=== PATIENT | female | born 1950 | race Caucasian/White ===

== ENCOUNTER → 2019-11-08 16:07 | Outpatient (BNVA) | payer MEDICARE, OTHER, SELFPAY | PROVIDERS: Family Provider Internal Medicine; PCP Internal Medicine; Visit Provider Internal Medicine | DX: K52.9 Noninfective gastroenteritis and colitis, unspecified (principal); M79.7 Fibromyalgia; E03.9 Hypothyroidism, unspecified; R10.30 Lower abdominal pain, unspecified; R63.4 Abnormal weight loss | CPT/HCPCS: 80053; 84443; 85025 ==

== ENCOUNTER 2019-11-28 11:25 | Outpatient (CLI) | payer MEDICARE, OTHER, SELFPAY ==
[2019-11-28] MEDS: iohexol 300 mg/mL 50 mL Btl PO (13:00)
--- NOTE | 2019-11-28 13:00 | CT_ITS ---
WS: [id number] CT ABDOMEN AND PELVIS WITH CONTRAST HISTORY: Abdominal pain and diarrhea. TECHNIQUE: Imaging performed of the abdomen and pelvis with IV contrast. Single phase imaging of the abdomen. Coronal and sagittal reformats are submitted. All CT scans at [facility] use at least one of these dose optimization techniques: automated exposure control; mA and/or kV adjustment per patient size (includes targeted exams where dose is matched to clinical indication); or iterativ e reconstruction. IV CONTRAST: Omnipaque 300; 75 mL IV. Oral contrast: Yes. DLP: 1065.52 mGycm COMPARISON: None available. Lower thorax: Noncalcified nodules at the LEFT lung base. Subpleural-based nodules measure up to 4 mm at the LEFT lung base. 1 No hiatal hernia. Liver/biliary system: Normal size liver. Very slight bile duct dilatation may be physiologic. Gallbladder: Status post cholecystectomy. Pancreas: Normal. Spleen: Spleen is normal size and contains a granuloma. Adrenal glands: Normal. Right kidney: Normal. Left kidney: No solid mass. 2 small to characterize hypodensities in the cortex. Aorta: Mild atherosclerosis with no aneurysm. Lymphadenopathy: None. Free fluid: None. GI tract: Normal appendix. Mild fecal retention in the RIGHT colon and transverse colon. There are a few scattered diverticula in the sigmoid region with mild wall thickening. No acute inflammation. Abdominal wall: Unremarkable abdominal wall. No hernia. Pelvis: No free fluid or adenopathy. LEFT adnexal cyst measures 3.2 x 2.8 cm. Nondistended urinary bl adder. There is a very tiny amount of air in the urinary bladder which may be due to recent instrumen tation or infection. Bones: Degenerative changes in the lumbar spine. No osteoblastic or osteolytic bone disease. CT/CT abdomen pelvis w con* [id number] IMPRESSION: 1. Prior cholecystectomy. 2. Mild sigmoid diverticulosis with sigmoid wall thickening. No acute divertic ulitis. 3. LEFT ovarian cyst measuring 3.2 x 2.8 cm. 4. Tiny amount of air in the urinary bladder. May be due to recent instrumenta tion or gas producing organism. Less likely fistula formation with GI tract. 5. Subcentimeter, subpleural nodules at the LEFT lung base. Recommend follow-u p chest CT in 6 months.
[2019-11-28] MEDS: iohexol 300 mg/mL 100 mL Btl IV (13:01)
== END 2019-11-28 11:26 | disposition home or self-care (01) ==
LOC: RADWPI 11:29
PROVIDERS: Family Provider Internal Medicine; PCP Internal Medicine; Visit Provider Internal Medicine
DX: R63.4 Abnormal weight loss (principal); R10.30 Lower abdominal pain, unspecified; K57.30 Diverticulosis of large intestine without perforation or abscess without bleeding; N83.202 Unspecified ovarian cyst, left side; R91.8 Other nonspecific abnormal finding of lung field
CPT/HCPCS: 74177; Q9967

== ENCOUNTER 2019-12-23 13:56 | Outpatient (CLI) | payer MEDICARE, OTHER, SELFPAY ==
--- NOTE | 2019-12-23 14:22 | XR_ITS ---
WS: [id number] PROCEDURE: XR chest 2V* [id number] CLINICAL INFORMATION: LOWER RESPIRATORY INFECTION COMPARISON: None. FINDINGS: Heart: Normal cardiac silhouette. Lungs: Lungs are clear. No consolidation or pleural fluid. Moderate chronic emphysematous changes Bones: Normal visualized bony structures. Cholecystectomy clips. XR/XR chest 2V* [id number] IMPRESSION: No acute chest findings
== END 2019-12-23 13:57 | disposition home or self-care (01) ==
LOC: RADWPI 14:00
PROVIDERS: Family Provider Internal Medicine; PCP Internal Medicine
DX: J22 Unspecified acute lower respiratory infection (principal)
CPT/HCPCS: 71046

== ENCOUNTER 2020-03-20 11:29 | Outpatient (CLI) | payer MEDICARE, OTHER, SELFPAY ==
--- NOTE | 2020-03-20 11:43 | XR_ITS ---
WS: [id number] ABDOMEN 1 VIEW(S) HISTORY: GENERALIZED ABDOMINAL PAIN COMPARISON: None available. Normal bowel gas pattern. No suspicious calcifications or masses. Mild spondylitic changes. Narrowing of the RIGHT SI joint. No fusion was noted on CT of 11/28/2019. Cholecystectomy. XR/XR abdomen 1V* [id number] IMPRESSION: Prior cholecystectomy. No obstruction.
== END 2020-03-20 11:30 | disposition home or self-care (01) ==
LOC: RADWPI 11:34
PROVIDERS: Family Provider Nurse Practitioner Family; PCP Nurse Practitioner Family; Visit Provider Nurse Practitioner Family
DX: R10.84 Generalized abdominal pain (principal); Z90.49 Acquired absence of other specified parts of digestive tract
CPT/HCPCS: 74018

== ENCOUNTER 2020-04-10 14:40 | Outpatient (CLI) | payer MEDICARE, OTHER, SELFPAY ==
--- NOTE | 2020-04-10 14:46 | US_ITS ---
WS: [id number] RENAL ULTRASOUND REASON FOR EXAM: GENERALIZED ABDOMINAL PAIN TECHNIQUE: Grayscale and Doppler ultrasound examination of the kidneys. FINDINGS: Right kidney: Right kidney measures 10.1 cm x 5.1 cm x 4.3 cm. No mass, hydronephrosis, or calculus. Renal cortical thickness 1.2 cm. Left kidney: Left kidney measures 9.7 cm x 4.5 cm x 5.0 cm. No mass, hydronephrosis, or calculus. Anshul al cortical thickness 1.6 cm. Very small amount of fluid in the urinary bladder no abnormality seen. US/US renal BI* [id number] IMPRESSION: No significant abnormality.
== END 2020-04-10 14:41 | disposition home or self-care (01) ==
LOC: US 14:43
PROVIDERS: PCP Nurse Practitioner Family; Visit Provider Nurse Practitioner Family
DX: R10.84 Generalized abdominal pain (principal)
CPT/HCPCS: 76770

== ENCOUNTER → 2021-03-11 13:17 | Outpatient (BNVA) | payer MEDICARE, OTHER, SELFPAY | PROVIDERS: PCP Nurse Practitioner Family; Visit Provider Specialist | DX: M17.12 Unilateral primary osteoarthritis, left knee (principal); M25.562 Pain in left knee | CPT/HCPCS: 73560; 73565 ==

== ENCOUNTER 2021-06-18 09:11 | Outpatient (CLI) | payer MEDICARE, OTHER, SELFPAY ==
--- NOTE | 2021-06-18 09:19 | MR_ITS ---
WS: [id number] MRI LEFT KNEE NONCONTRAST TECHNIQUE: Axial PD, coronal PD fat sat, coronal PD, sagittal PD, and sagittal PD fat-sat images obta ined. CLINICAL INFORMATION: S83.209A - Unspecified tear of unspecified meniscus, curr... COMPARISON: MRI 2018 FINDINGS: Distal quadriceps and patella tendons are intact. Tendinosis involving the proximal patella tendon. H ypertrophic patella. Small joint effusion. Normal ACL and PCL. Advanced joint space narrowing medial joint compartment with subchondral edema progressed compared to previous. Prior medial meniscectomy. Associated subchondral cystic change. Lateral meniscus is better preserved. Normal medial and lateral collateral ligaments. Trace fluid aramis p to the MCL. Mild chondromalacia patella. Normal medial and lateral patellar retinaculum. Normal pop liteal fossa. MR/MR knee LT wo con* [id number] IMPRESSION: 1. Normal anterior and posterior cruciate ligaments. 2. Prior medial meniscectomy with near complete loss of the medial joint space with [id number] articulation and advanced chondromalacia. This is progressed compared to previous. 3. Associated subchondral cystic change and edema in the medial femoral condyl e and tibial plateau. 4. Lateral meniscus is better preserved. 5. Mild chondromalacia patella with hypertrophic patella. Tendinosis proximal patellar tendon. 6. Small joint effusion. 7. No other acute findings. Outbridge grading: grade III: partial-thickness cartilage loss with focal ulcer ation
== END 2021-06-18 09:12 | disposition home or self-care (01) ==
PROVIDERS: PCP Nurse Practitioner Family; Visit Provider Specialist
DX: S83.207A Unspecified tear of unspecified meniscus, current injury, left knee, initial encounter (principal); X58.XXXA Exposure to other specified factors, initial encounter; M25.462 Effusion, left knee; M22.42 Chondromalacia patellae, left knee
CPT/HCPCS: 73721

== ENCOUNTER → 2021-07-18 13:00 | Outpatient (BNVA) | payer MEDICARE, OTHER, SELFPAY | PROVIDERS: PCP Internal Medicine; Visit Provider Internal Medicine | DX: R07.9 Chest pain, unspecified (principal); R30.0 Dysuria; M79.7 Fibromyalgia | CPT/HCPCS: 80053; 80061; 81000; 84443; 85025 ==

== ENCOUNTER 2021-07-30 14:23 | Outpatient (RCR) | payer MEDICARE, OTHER, SELFPAY | END 2021-08-29 23:59 | disposition home or self-care (01) | LOC: SPT 14:23 | PROVIDERS: PCP Internal Medicine; Visit Provider Specialist | DX: M17.12 Unilateral primary osteoarthritis, left knee (principal) | CPT/HCPCS: 97110; 97162 ==

== ENCOUNTER → 2022-03-13 09:50 | Outpatient (BNVA) | payer MEDICARE, OTHER, SELFPAY | PROVIDERS: PCP Internal Medicine; Visit Provider Specialist | DX: M17.12 Unilateral primary osteoarthritis, left knee (principal) | CPT/HCPCS: 20610; J7327 ==

== ENCOUNTER → 2022-04-30 10:22 | Outpatient (BNVA) | payer MEDICARE, OTHER, SELFPAY | PROVIDERS: PCP Internal Medicine; Visit Provider Specialist | DX: M17.12 Unilateral primary osteoarthritis, left knee (principal) | CPT/HCPCS: 73560; 73565; 99214 ==

== ENCOUNTER 2022-05-05 13:57 | Outpatient (CLI) | payer MEDICARE, OTHER, SELFPAY ==
--- NOTE | 2022-05-05 18:00 | CT_ITS ---
WS: [id number] CT LEFT KNEE, NONCONTRAST FAUSTINA TECHNIQUE: Noncontrast CT of the LEFT knee to include the LEFT hip and ankle. CLINICAL INFORMATION: pre op DLP: 855.[address] scans at [facility] use at least one of these dose optimization techniques: automated e xposure control; mA and/or kV adjustment per patient size (includes targeted exams where dose is matc hed to clinical indication); or iterative reconstruction. FINDINGS: Moderate to advanced tricompartmental arthritis LEFT knee worse in the medial joint compartment. Hype rtrophic patella. Small suprapatellar effusion. Mild soft tissue edema about the knee. Vascular calcification. Sigmoid diverticulosis. CT/CT knee LT FAUSTINA IMPRESSION: Images obtained for preoperative purposes.
== END 2022-05-05 13:58 | disposition home or self-care (01) ==
LOC: RAD 14:00
PROVIDERS: PCP Internal Medicine; Visit Provider Specialist
DX: M17.12 Unilateral primary osteoarthritis, left knee (principal)
CPT/HCPCS: 73700

== ENCOUNTER 2022-05-13 14:34 | Observation (INO) | payer MEDICARE, OTHER, SELFPAY ==
[2022-05-09 10:03] VITALS: BMI 23.0
--- NOTE | 2022-05-09 10:15 | ECG_ITS ---
[facility] Test Date: 2022-05-09 Pat Name: Cristy Blevins Department: Room: Gender: Female Studio Receptionist: : 1950 Requested By: Attila Kennedy Order Number: [id number] Chase MD: Missy Lund M.D. Measurements Intervals Circle Rate: 64 P: 45 NE: 154 QRS: 31 QRSD: 85 T: 40 QT: 405 QTc: 419 Interpretive Statements SINUS RHYTHM No previous ECG available for comparison Electronically Signed On 05-09-2022 13:13:30 SUPERVISOR BLOOD by Missy Lund M.D. [id number]
[2022-05-09 10:36] LABS: Add Urine Microscopic? NO; Charge for UA Resulting for Rev
[2022-05-09 10:37] LABS: Basophils % 0.4 %; Eosinophils # 0.1 10^3/uL (0.0-0.8); Eosinophils % 1.1 %; Hematocrit 36.7 % (37.0-47.0); Hemoglobin 12.2 g/dL (11.5-15.3); Lymphocytes # 1.4 10^3/uL (0.8-4.8); Lymphocytes % 26.2 %; Mean Corpuscular HGB Conc 33.2 g/dL (30.0-36.0); Mean Corpuscular Hemoglobin 30.9 pg (28.0-34.0); Mean Corpuscular Volume 92.9 fl (81-99); Mean Platelet Volume 10.4 fL (7.4-10.4); Monocytes # 0.5 10^3/uL (0.2-0.9); Monocytes % 8.8 %; Neutrophils # 3.44 10^3/uL (1.8-7.7); Neutrophils % 63.3 %; Nucleated Red Blood Cells % 0 %; Platelet Count 189 10^3/cmm (130-400); Red Blood Count 3.95 10^6/uL (4.1-5.3); Red Cell Distribution Width 11.9 % (12.1-15.1); White Blood Count 5.4 10^3/uL (4.0-10.0)
[2022-05-09 10:40] LABS: Bilirubin Urine Neg (Negative); Blood Urine Neg (Negative); Glucose Urine UA Norm (Normal); Ketones Urine Negative (Negative); Leukocyte Esterase Urine Negative (Negative); Nitrate Urine Negative (Negative); Protein Urine Neg (Negative); Specific Gravity, Urine 1.025 (1.005-1.030); Urine Appearance Clear (CLEAR); Urine Color Yellow (Yellow); Urobilinogen Urine Norm (Negative); pH Urine 5 (5-7)
[2022-05-09 10:59] LABS: Alanine Aminotransferase 16 U/L (0-33); Albumin Level 4.1 g/dL (3.5-5.2); Alkaline Phosphatase 62 U/L (35-105); Aspartate Amino Transferase 18 U/L (0-32); Blood Urea Nitrogen 16 mg/dL (8-23); Calcium 9.9 mg/dL (8.5-10.5); Carbon Dioxide 26 mmol/L (22-29); Chloride 103 mmol/L (98-107); Globulin 3.1 g/dL (1.3-4.6); Glucose 83 mg/dL (65-115); Osmolality Calculated 286 mOsm/kg (285-295); Sodium 138 mmol/L (136-145); Total Bilirubin 0.4 mg/dL (0.15-1.2); Total Protein 7.2 g/dL (6.6-8.7)
--- NOTE | 2022-05-09 11:48 | P.ANESASSM_ITS ---
Pre-Anesthetic Assessment Height/Weight: Height 1.6 m Weight 58.967 kg Operation Date: 05/13/22 10:35 Proposed Procedures p LEFT TOTAL KNEE ARTHROPLASTY WITH FAUSTINA ASSISTANCE 40074 M17.10(Left) - Seda Gibson MD Familial anesthetic complications: none Was Beta Alpesh taken within 24 hours: N/A Was Clonidine taken within 24 hours: N/A Social No alcohol and No tobacco Exam alert, oriented x 3, clear to auscultation bilaterally and regular rate & rhythm Airway Submandibular: within normal limits Cervical ROM: within normal limits Mallampati: Class II Dentition: full Musc/skel Fibromyalgia and Osteoarthritis/DJD Neuropsych Anxiety and Depression Anesthetic Plan ASA status: 2 Anesthesia: Regional (specify below) (SAB with adductor blk) Medications/Allergies Home Medications Medication Instructions Recorded Confirmed Last Taken Type ascorbic acid (vitamin C) 1,000 mg 1 gm PO ONCE 06/08/19 05/09/22 05/09/22 Hi story tablet aspirin 81 mg tablet,delayed 81 mg PO ONCE 06/08/19 05/09/22 04/30/22 History release calcium tab PO ONCE 06/08/19 04/30/22 05/09/22 History eny-rhz-C4-Eg-wbjilc-Tz-boron 250 mg-40 mg-125 unit tablet cholecalciferol (vitamin D3) 50 2,000 unit PO ONCE 06/08/19 05/09/22 05/09/22 History mcg (2,000 unit) tablet vitamin B complex (B 1 tab PO ONCE 06/08/19 05/09/22 05/02/22 History Complex-Vitamin B12 tablet) vitamin E (dl, acetate) 45 mg (100 100 unit PO ONCE 06/08/19 05/09/22 05/09/22 History unit) capsule bismuth subsalicylate 262 mg 3 tab PO TID 07/27/19 05/09/22 Unknown History chewable tablet (Pepto-Bismol) meloxicam 15 mg tablet See Rx Instructions .Route 06/12/21 05/09/22 04/30/22 Rx .COMPLEX #90 tabs fluoxetine 40 mg capsule See Rx Instructions .Route 06/24/21 05/09/22 05/09/22 Rx .COMPLEX #90 caps trazodone 50 mg tablet See Rx Instructions .Route 03/17/22 05/09/2205/08/22 Rx .COMPLEX #90 tabs Allergies Allergy/AdvReac Type Severity Reaction Status Date / Time No Known Allergies Allergy Verified 05/09/22 09:58 [facility] Anesthesia Medical History Depression Fibromyalgia History of colon polyps Osteoarthritis Seborrheic keratoses Surgical History H/O arthroscopic knee surgery left H/O colonoscopy 12/17/18. Repeat in 5 years H/O esophagogastroduodenoscopy 12/17/18 H/O rotator cuff surgery right 2009 H/O wrist surgery left 12/2016 [facility] History of hysterectomy partial History of tonsillectomy and adenoidectomy Hx laparoscopic cholecystectomy 03/30/19 Family History Other Cancer Heart disease Hypertension Stroke Denies family history of Anesthesia complication Bleeding disorder Social History Smoking and tobacco status: never smoked Alcohol intake: current Alcohol intake frequency: holidays/special occasions only Lives independently: Yes Marital status: Single Current occupational status: retired History of recent travel: No Data Anesthesia 05/09/22 10:20 05/09/22 10:20 Short CBC 05/09/22 Range/Units 10:20 WBC 5.4 (4.0-10.0) 10^3/uL Hgb 12.2 (11.5-15.3) g/dL Hct 36.7 L (37.0-47.0) % MCV 92.9 (81-99) fl Plt Count 189 (130-400) 10^3/cmm Neut % (Auto) 63.3 % Neut # (Auto) 3.44 (1.8-7.7) 10^3/uL BMP 05/09/22 10:20 Sodium 138 Potassium 4.0 Chloride 103 Carbon Dioxide 26 BUN 16 Creatinine 0.7 Glucose 83 Calcium 9.9 Liver Function 05/09/22 Range/Units 10:20 Total Bilirubin 0.4 (0.15-1.2) mg/dL AST 18 (0-32) U/L ALT 16 (0-33) U/L Alkaline Phosphatase 62 (35-105) U/L Albumin 4.1 (3.5-5.2) g/dL Urine 05/09/22 Range/Units 10:20 Urine Color Yellow (Yellow) Urine Appearance Clear (CLEAR) Urine pH 5 (5-7) Ur Specific Dowling 1.025 (1.005-1.030) Urine Protein Neg (Negative) Urine Glucose (UA) Norm (Normal) Urine Ketones Negative (Negative) Urine Nitrate Negative (Negative) Urine Bilirubin Neg (Negative) Ur Leukocyte Esterase Negative (Negative) Cardiac Studies: No Data to Display
[2022-05-13] VITALS (17 sets, daily range): BP systolic 128–160; BP diastolic 62–84; PULSE 68–98; RESP 15–21; TEMP 36.4–36.8; O2SAT 94–99; BMI 23.0
--- NOTE | 2022-05-13 09:11 | P.ANESUD_ITS ---
Pre-Anesthetic Update Pre-Anesthetic Assessment: Date of Surgery/Procedure: 05/13/22 Preop Jailene gnosis: Primary osteoarthritis left knee Proposed Procedure: Operation Date: 05/13/22 10:35 Proposed Procedures p LEFT TOTAL KNEE ARTHROPLASTY WITH FAUSTINA ASSISTANCE 54075 M17.10(Left) - Seda Gibson MD Any changes to Pre-Anesthetic Assessment?: No Last Intake: Intake Last Liquid Date 05/12/22 Last Liquid Time 23:00 Last Solid Date 05/12/22 Last Solid Time 19:30 Vitals: Temperature 97.5 F L 05/13/22 08:59 Temperature Source Temporal Artery S can 05/13/22 08:59 Pulse Rate 80 05/13/22 08:59 Respiratory Rate 18 05/13/22 08:59 Blood Pressure 157/77 05/13/22 08:59 Blood Pressure Isabel n 103 05/13/22 08:59 Pulse Oximetry 96 05/13/22 08:59 Oxygen Delivery Me thod 05/13/22 08:59 Exam: Pre-Anes Outpt Exam: alert, oriented x 3, clear to auscultation bilaterally and regular rate & rhythm Cardiac Studies: No Data to Display
[2022-05-13] MEDS: acetaminophen 1,000 MG/100 ML PIGGYBACK 400 MG IV ×2 (09:12→16:57)
[2022-05-13] MEDS: CELEcoxib 200 mg Capsule 400 MG PO (09:12)
[2022-05-13] MEDS: sodium chloride 0.9% 1,000 ML 30 ML IV (09:12)
--- NOTE | 2022-05-13 09:35 | ANES.PROC ---
Anesthesia Procedures Procedure/Date: 05/13/22 Nerve Block ^: Nerve Block 1: Main Anesthesia: general anesthesia Time Out Performed: Yes Consent: requested by attending/covering physician, from patient, risks and benefits reviewed and patient agrees to proceed Nerve block location: adductor canal (L) Anesthesia monitors applied: pulse oximetry, EKG, BP cuff and oxygen Nerve block position: supine Anesthetic Used: ropivicaine 0.5% (30 ml) and with decadron (4 mg) Ultrasound used to: recognize landmarks and visualize and ID femerol nerve Nerve Stimulator Used?: No Interscalene/Femoral BLK: 4 stimuplex 21 g needle used for position and inplane approach, visualize local anesthetic spread and no vascular puncture identified Injection: neg aspiration of heme and paresthesia +/- Patient Tolerated Procedure: well and no complications Complications: none
--- NOTE | 2022-05-13 10:11 | W.PM.OPSUD ---
Surgery/Procedure H&P Update DATE OF PROCEDURE: May 13, 2022 DATE H&P PERFORMED: 04/30/22 H&P UPDATE INFORMATION: I have reviewed H&P completed within last 30 days, I have examined patient prior to procedure, No changes to prior documentation and H&P is in [facility] EMR on date indicated PREOP DIAGNOSIS: Primary osteoarthritis left knee PLANNED PROCEDURE: Operation Date: 05/13/22 10:35 Proposed Procedures p LEFT TOTAL KNEE ARTHROPLASTY WITH FAUSTINA ASSISTANCE 24118 M17.10(Left) - Seda Gibson MD
[2022-05-13] MEDS: ceFAZolin 2,000 MG in sodium chloride 0.9% (plus) 50 ML 100 MG IV ×2 (10:34→17:59)
[2022-05-13] MEDS: tranexamic acid 1,000 mg/10mL SDV 1000 MG IV ×2 (11:28→12:33)
[2022-05-13] MEDS: ceFAZolin 1,000 mg SDV 1000 MG IRRIGATION (11:34)
[2022-05-13] MEDS: vancomycin 1,000 MG SDV 1000 MG XX (11:35)
--- NOTE | 2022-05-13 14:25 | PM.OP ---
Operative Report Date of procedure: May 13, 2022 Pre-op diagnosis: Primary osteoarthritis left knee Post-op diagnosis: Primary osteoarthritis left knee Post-op findings: Severe degenerative osteoarthritic changes with loss of cartilage on the medial femoral condyle and large osteophytes Procedure done: Lavelle assisted left total knee arthroplasty Implants: The [employer] total knee system with a size 3 triathlon beaded cruciate retaining femur left, a triathlon titanium tibial component size 3 beaded, a triathlon X3 tibial bearing CS insert size 3 X 11 mm and a beaded triathlon titanium asymmetric patella size 32 x 10 mm Specimens removed/disposition: Bone, disposed of Pathology: none sent Surgeon: Seda Gibson Eligibility Examiner: [facility] operating room technicians Anesthesia: MAC (With spinal anesthesia, ASA 2, with supplemental adductor block) Estimated blood loss (mL): 50 Tourniquet time (min): 86 (At 250 mmHg) IV fluids (mL): 800 Urine output (mL): 500 Complications: None Findings: Degenerative osteoarthritic change with cartilage loss and osteophyte formation. Condition: stable Disposition: PACU (Then to floor for postoperative rehabilitation and pain.) Brief History: Cristy Blevins is an established 71 year old female patient who is here today to proceed with left total knee arthroplasty. Patient states Monovisc injection did not help.? Patient also states that cortisone injections did not help.? She continues to have difficulty with activities of daily living, and at this point, she would just like to have her knee fixed . Risks and complications were discussed in the office. Consents were signed and questions were answered. Procedure: The patient was brought to the operating theater, and after undergoing adequate spinal anesthesia supplemented with adductor canal block and MAC, ASA 2, the left lower extremity was prepped with Dura-Prep and draped in usual fashion following placement of a tourniquet high on the leg. The leg was then draped free. Following prepping and draping, the leg was exsanguinated, and the tourniquet was elevated to 250 mmHg for a total tourniquet time of 86 minutes.? Prior to elevation of the tourniquet, but following exposure of the site of surgery, a surgical pause was performed. At the time of the surgical pause, we confirmed the site and side of surgery. Additionally, we confirmed the appropriate and timely administration of preoperative antibiotics, Ancef 2 g and Transexemic acid 1 g.? The availability of equipment was confirmed, and the patient's identity was verbalized as well.? An additional transexemic acid 1 g was given at the end of the surgical procedure as well. Following the surgical pause, an incision was made centering over the patella continuing proximally and distally as necessary to allow access to the knee joint. Dissection continued through skin and soft tissues using a scalpel. Hemostasis was obtained using electrocautery. The skin incision was followed by a median parapatellar arthrotomy. The leg was extended and the patella was able to be displaced laterally.? Appropriate arrays and markers were placed in appropriate position for use of the Lavelle.? Preoperative planning had been accomplished and was discussed in detail with the [facility] bilingual inside sales representative.? Intraoperative mapping of the femur and tibia was accomplished after the arrays were placed.? Checkpoints were also placed.? Once we had accomplished the Lavelle mapping, we began the appropriate resections for placement of the prosthesis.? The plan was for a cruciate retaining right total knee arthroplasty. Once appropriate mapping had been accomplished retraction was established using manual retraction by surgical technicians and also the Lavelle leg positioner and retractors.? The knee was evaluated.? There was a significant osteoarthritic change with slight flexion contracture.? Appropriate bone resection was accomplished using the Lavelle.? The femur was sized to a size 3.? This started with the femur and subsequently tibial resection was accomplished.? Osteophytes were removed prior to this portion of the procedure.? We had performed a minimal medial release at the beginning of the procedure to allow for placement of the array.? Proximal tibia was evaluated and it was felt that appropriate size for the tibia was a size 3 which matched the femoral component.? A trial reduction was accomplished after osteophytes have been removed as well as the medial and lateral menisci.? We had removed the anterior cruciate ligament at the beginning of the case and preserved the posterior cruciate ligament.? Trial reduction was accomplished with a size 3 femoral cruciate retaining component and a size 3 CS tibial bearing insert which was 9 mm in thickness, but this was increased to 11 mm during the trial reductions following posterior release.? With this, we had excellent stability, full extension, and appropriate alignment.? Trial components were removed after the femur had been drilled.? Posterior release was accomplished to ensure full flexion.? Prior to removal of the tibial tray which had been pinned in position with appropriate rotation as determined by the Lavelle plan, we broached the tibia.? Subsequently, the 4 drill holes were made for the prosthetic component.? All trial components had been removed, and the wound was irrigated.? Plans were made for insertion of the prosthetic components.? Prior to this, the patella was manually prepared.? After resection of the articular surface with the jogging system, it was measured and measured a 32 mm patella.? We resected approximately 9 mm of patella and patellar height was restored with the patellar component. Once again, the wound was irrigated.? The Tritanium tibia was impacted into position.? The beaded femur was then impacted into position in a cementless fashion. The CS tibial insert was placed prior to placement of the femoral component. The patella was pressed into position with a patellar clamp.? Exparel was injected about the components deep and superficially.? The knee was then copiously irrigated with betadine and saline and suctioned dry. Attention was then directed to closure. Closure was accomplished with 0 Vicryl in the fascial tissues.? This was followed by Surgiflo and vancomycin powder.? Following this, a 2-0 Monocryl was used in the subcutaneous tissues, and the skin was closed with skin sena.? Care was taken to assure an excellent subcutaneous as well as skin closure.? A sterile dressing was then placed consisting of Dermabond Prineo, Telfa, OpSite, sterile soft roll including over the foot, and an Tomasz wrap. The patient was returned the Recovery Room in a satisfactory condition. X-rays were obtained and reviewed there.? The patient will be discharged to the floor for postoperative rehabilitation and pain management. Related Problem List Diagnoses (1) Status post total left knee replacement not using cement: Date of procedure: May 13, 2022 Diagnosis: Primary osteoarthritis left knee Post-op findings: Severe degenerative osteoarthritic changes with loss of cartilage on the medial femoral condyle and large osteophytes Procedure done: Lavelle assisted left total knee arthroplasty Implants: The [employer] total knee system with a size 3 triathlon beaded cruciate retaining femur left, a triathlon titanium tibial component size 3 beaded, a triathlon X3 tibial bearing CS insert size 3 X 11 mm and a beaded triathlon titanium asymmetric patella size 32 x 10 mm (2) Primary osteoarthritis of left knee:
--- NOTE | 2022-05-13 14:26 | XR_ITS ---
WS: [id number] Left knee, AP and lateral views, 05/13/2022 Clinical Data: Status post left total knee arthroplasty Comparison: AP both knees, left knee, 04/30/2022 Findings: History component knee arthroplasty has been placed in the left knee. There is postoperative air in t he joint space. There are anterior subcutaneous surgical clips. XR/XR knee LT 1-2V [id number] Impression: Left knee arthroplasty.
--- NOTE | 2022-05-13 14:31 | SUR.PHASEI ---
1418 PT AWAKE ALERT TALKATIVE, VSS HOB AT 30 DEGREES, PT MOVES BILAT FEET STRONGLY AND STATES SHE FEELS TOUCH BUT STATES THAT SHE FEELS TINGLY AND NUMB TO TOUCH TO BILAT FEET.LT KNEE DRESSING D/I FIRST ICE TO KNEE DISTAL FOOT PINK WARM WITH STRONG REGULAR PULSE MARKED. MONITOR SR WITH NO ECTOPY, VSS PT WITH RAZA CATHETER URINE YELLOW CLEAR PATENT TO TUBING AND BAG, STATLOCK TO RT INNER THIGH, PT LAUGHING TAKING ICE CHIPS X RAY HERE. ID BRACELET TO LT WRIST, IV TO RT HAND #20 WITH NS 200 AT KVO RATE PER GRAVITY.
--- NOTE | 2022-05-13 14:47 | SUR.PHASEI ---
1446 PT AWAKE ALERT , DR LEYVA TALKED WITH FAMILY PER PHONE, NO FAMILY IN WAITING ROOM AT THIS TIME, ATTEMPTED TO CALL REPORT TO FLOOR, NURSE TO CALL BACK FOR REPORT PT NOW IN HOLDING AND OUT OF PHASE 1 NOW.
[2022-05-13] MEDS: oxyCODONE 5 mg IR Tab/Cap PO ×2 (15:25→20:43)
--- NOTE | 2022-05-13 17:06 | ANE.PACU2 ---
Inpatient post-anesthesia follow up: Airway intact: Yes Vital signs: Temperature 97.8 F Pulse Rate 98 Respiratory Rate 16 Blood Pressure 152/77 Pulse Oximetry 99 Oxygen Delivery Me thod Room Air Oxygen Flow Rate Fraction of Inspir ed Oxygen Hydration adequate: Yes Nausea and vomiting: No Pain level: 1 Mental status: Baseline
[2022-05-13] MEDS: iron polysaccharide complex 150 mg Capsule PO (18:00)
[2022-05-13] MEDS: mupirocin oint 22 gm 1 APPLIC NASAL (18:00)
[2022-05-13] MEDS: calcium carbonate 500 mg Chew Tablet 1000 MG PO (18:00)
[2022-05-13] MEDS: sennosides-docusate Tablet 2 TAB PO (18:00)
[2022-05-13] MEDS: chlorhexidine gluconate 0.12% Btl 473 mL 30 ML MUCOUS MEM ×2 (18:34→21:52)
[2022-05-13] MEDS: CELEcoxib 200 mg Capsule PO (20:43)
[2022-05-13] MEDS: trazodone 50 mg Tablet PO (21:52)
[2022-05-14] VITALS (7 sets, daily range): BP systolic 122–155; BP diastolic 61–71; PULSE 69–77; RESP 16–20; TEMP 36.7–36.9; O2SAT 96–98
[2022-05-14] MEDS: acetaminophen 1,000 MG/100 ML PIGGYBACK 400 MG IV ×2 (00:02→08:12)
[2022-05-14] MEDS: oxyCODONE 5 mg IR Tab/Cap PO ×3 (01:10→12:11)
[2022-05-14] MEDS: ceFAZolin 2,000 MG in sodium chloride 0.9% (plus) 50 ML 100 MG IV ×2 (01:41→10:28)
[2022-05-14 03:56] LABS: Basophils % 0.1 %; Hematocrit 29.7 % (37.0-47.0); Hemoglobin 9.9 g/dL (11.5-15.3); Lymphocytes # 1.2 10^3/uL (0.8-4.8); Lymphocytes % 10.9 %; Mean Corpuscular HGB Conc 33.3 g/dL (30.0-36.0); Mean Corpuscular Hemoglobin 31.2 pg (28.0-34.0); Mean Corpuscular Volume 93.7 fl (81-99); Mean Platelet Volume 10.6 fL (7.4-10.4); Monocytes # 1.1 10^3/uL (0.2-0.9); Monocytes % 9.6 %; Nucleated Red Blood Cells % 0 %; Platelet Count 184 10^3/cmm (130-400); Red Blood Count 3.17 10^6/uL (4.1-5.3); Red Cell Distribution Width 12.2 % (12.1-15.1); White Blood Count 11.2 10^3/uL (4.0-10.0)
[2022-05-14 04:45] LABS: Anion Gap 13.2 (5-19); Blood Urea Nitrogen 10 mg/dL (8-23); Calcium 8.7 mg/dL (8.5-10.5); Carbon Dioxide 25 mmol/L (22-29); Chloride 105 mmol/L (98-107); Glucose 130 mg/dL (65-115); Osmolality Calculated 289 mOsm/kg (285-295); Potassium 4.2 mmol/L (3.5-5.1); Sodium 139 mmol/L (136-145)
[2022-05-14] MEDS: CELEcoxib 200 mg Capsule PO (08:11)
[2022-05-14] MEDS: aspirin 325 mg EC Tablet PO (08:11)
[2022-05-14] MEDS: fluoxetine 20 mg Capsule 40 MG PO (08:11)
[2022-05-14] MEDS: iron polysaccharide complex 150 mg Capsule PO (08:11)
[2022-05-14] MEDS: multivitamin therapeutic Tablet 1 TAB PO (08:11)
[2022-05-14] MEDS: cholecalciferol (vitamin D3) 1,000 unit Tablet 1000 UNIT PO (08:11)
[2022-05-14] MEDS: sennosides-docusate Tablet 2 TAB PO (08:11)
[2022-05-14] MEDS: calcium carbonate 500 mg Chew Tablet 1000 MG PO (08:11)
[2022-05-14] MEDS: mupirocin oint 22 gm 1 APPLIC NASAL (08:12)
[2022-05-14] MEDS: chlorhexidine gluconate 0.12% Btl 473 mL 30 ML MUCOUS MEM ×2 (08:14→12:14)
--- NOTE | 2022-05-14 09:47 | PC.CHAP ---
Pastoral Care Encounter/Spiritual Assessment Type of Contact [] Declined nursing home director visit [] Patient/Family/Request visit [] Outpatient visit [] Follow-up visit [] Physician referral [] Code/Alert [x] Routine visit [] Staff referral [] Actively dying [] Patient sleeping [] Family support [] [] Out of room [] Palliative care [] [] Receiving care in room [] Pre-surgical visit [] Trauma [] Long length of stay [] ICU visit [] Other: Relational/Emotional Strength [x] Patient feels connected with others/family/visitors/staff [] Distress [] Loneliness/isolation [] Abandonment Spirituality of Patient [x] Person of Lauren [] Attends Rastafari of their Lauren [] Believes in Prayer [] Reads Bible or Mu-Ism materials [] There are Spiritual issues to be addressed Marketing Associate Interventions [x] Prayer [x] Active listening [x] Non-anxious presence [x] Spiritual/emotional support [] Crisis/trauma care [] Spiritual counseling [] Bereavement support [] Provided bereavement packet [] Provided Bible/devotional materials [] Provided toy/stuffed animal, coloring book to patient or family member [] Provided Communion [] Anointing/[place] [] Salvation [x] Completed spiritual assessment [] Other: Impact on Illness or Injury [] Angry [] Fearful [] Anxious [] Often cries [] Exhaustion [] Unable to work [] Unable to attend latter-day [] Unable to walk/stand [] Unable to read [] Unable to drive [] Unable to eat/drink [] Unable to sleep [] Unable to be with family [] Patient intubated [] Other: Summary Pt is a volunteer at the hospital. Has sister and Mom in immediate area. Son in [place]. Also has family CN Time spent with patient 15 m
--- NOTE | 2022-05-14 13:39 | PM.DCS ---
Discharge Providers Date of Admission: 05/13/22 14:34 Date of Discharge: May 14, 2022 Attending Provider at Admission: Seda Gibson MD Attending Provider at Discharge: Seda Gibson MD Consults: None Diagnoses at Discharge Discharge Diagnosis (1) Status post total left knee replacement not using cement: Status: Acute Permanent problem details: Date of procedure: May 13, 2022 Diagnosis: Primary osteoarthritis left knee Procedure done: Lavelle assisted left total knee arthroplasty Implants: The [place] total knee system with a size 3 triathlon beaded cruciate retaining femur left, a triathlon titanium tibial component size 3 beaded, a triathlon X3 tibial bearing CS insert size 3 X 11 mm and a beaded triathlon titanium asymmetric patella size 32 x 10 mm (2) Primary osteoarthritis of left knee: Status: Acute Reason for Visit Reason for Visit: unilateral primary oseoarthritis, left knee Brief History: Cristy Blevins is an established 71 year old female patient who is here today to proceed with left total knee arthroplasty. Patient states Monovisc injection did not help.? Patient also states that cortisone injections did not help.? She continues to have difficulty with activities of daily living, and at this point, she would just like to have her knee fixed .? Risks and complications were discussed in the office.? Consents were signed and questions were answered. Hospital Course Hospital Course This 71-year-old woman was admitted for same-day surgery in the form of Lavelle assisted left total knee arthroplasty. This was accomplished for the patient uneventfully. She was brought into the hospital postoperatively under observation status for postoperative pain control and early mobilization with physical therapy. On the first postoperative day, the patient was seen in her room. Her dressing was intact, but this was removed down to the OpSite. There was no evidence of significant bleeding. There was minimal to no ecchymosis. She was neurologically intact with no evidence of DVT. Patient was ambulating well with physical therapy and therefore plans were made for discharge to home to follow-up with me as previously scheduled. Physical Exam Const: COMMON NORMALS: no acute distress, average body habitus, patient oriented x3 and alert GENERAL APPEARANCE: cooperative and comfortable ORIENTATION/CONSCIOUSNESS: Yes awake HENMT: COMMON NORMALS: normocephalic and atraumatic HEAD & SCALP: normocephalic and atraumatic Eye: GENERAL EYE: appearance normal, both eyes and all related structures Chest: COMMONS NORMALS: normal inspection of the chest Resp: COMMON NORMALS: normal respiratory effort EFFORT & INSPECTION: Yes able to speak in complete sentences and Yes symmetric chest movement Extremity: LEFT LOWER EXTREMITY: Yes knee joint (External dressing consisting of Tomasz wrap and soft roll was removed) Left knee: Yes inspection (Minimal to no ecchymosis. No evidence of significant drainage.), Yes palpation (Minimal tenderness.), Yes ROM (Able to straight leg raise.) and Yes neurovascular exam (Intact distally with no evidence of DVT.) Neuro: COMMON NORMALS: patient oriented x3 SENSORIUM/ORIENTATION: Yes alert Psych: COMMON NORMALS: mental status grossly normal APPEARANCE: Yes grossly normal ATTITUDE: Yes calm and Yes engaged ATTENTION/CONCENTRATION: Yes attention grossly intact Skin: COMMON NORMALS: no rashes or lesions noted GENERAL SKIN EXAM: no rashes or lesions noted Urinary Catheter Management: Ghotra: Cath Placed During This Visit: yes, but has since been removed by the nurse Reason for Continuing Indwelling Catheter: Decision to DC Catheter Urinary Catheter Date of Insertion: 05/13/22 Urinary Catheter Time of Insertion: 11:00 Date Urinary Catheter Removed: 05/14/22 Time Urinary Catheter Discontinued: 06:04 Discharge Data Studies Completed and Pending Completed Studies During Hospitalization Category Date Time Status XR knee LT 1-2V [id number] Routine Exams 05/13/22 14:26 Completed Radiology Impressions Knee X-Ray 05/13/22 14:26 Impression: Left knee arthroplasty. Laboratory Results WBC 11.2 10^3/uL (4.0-10.0) H 05/14/22 03:04 RBC 3.17 10^6/uL (4.1-5.3) L 05/14/22 03:04 Hgb 9.9 g/dL (11.5-15.3) L 05/14/22 03:04 Hct 29.7 % (37.0-47.0) L 05/14/22 03:04 MCV 93.7 fl (81-99) 05/14/22 03:04 MCH 31.2 pg (28.0-34.0) 05/14/22 03:04 MCHC 33.3 g/dL (30.0-36.0) 05/14/22 03:04 RDW 12.2 % (12.1-15.1) 05/14/22 03:04 Plt Count 184 10^3/cmm (130-400) 05/14/22 03:04 MPV 10.6 fL (7.4-10.4) H 05/14/22 03:04 Neut % (Auto) 79.0 % 05/14/22 03:04 Lymph % (Auto) 10.9 % 05/14/22 03:04 Blanco % (Auto) 9.6 % 05/14/22 03:04 Eos % (Auto) 0.0 % 05/14/22 03:04 Baso % (Auto) 0.1 % 05/14/22 03:04 Neut # (Auto) 8.80 10^3/uL (1.8-7.7) H 05/14/22 03:04 Lymph # (Auto) 1.2 10^3/uL (0.8-4.8) 05/14/22 03:04 Blanco # (Auto) 1.1 10^3/uL (0.2-0.9) H 05/14/22 03:04 Eos # (Auto) 0.0 10^3/uL (0.0-0.8) 05/14/22 03:04 Baso # (Auto) 0.0 10^3/uL (0.0-0.1) 05/14/22 03:04 Nucleated RBC % (auto) 0 % 05/14/22 03:04 Nucleated RBCs # 0.0 /100WBC 05/14/22 03:04 Sodium 139 mmol/L (136-145) 05/14/22 03:04 Potassium 4.2 mmol/L (3.5-5.1) 05/14/22 03:04 Chloride 105 mmol/L (98-107) 05/14/22 03:04 Carbon Dioxide 25 mmol/L (22-29) 05/14/22 03:04 Anion Gap 13.2 (5-19) 05/14/22 03:04 BUN 10 mg/dL (8-23) 05/14/22 03:04 Creatinine 0.7 mg/dL (0.5-0.9) 05/14/22 03:04 GFR Calculation Not Reportable 05/14/22 03:04 Glucose 130 mg/dL (65-115) H 05/14/22 03:04 Calculated Osmolality 289 mOsm/kg (285-295) 05/14/22 03:04 Calcium 8.7 mg/dL (8.5-10.5) 05/14/22 03:04 Total Bilirubin 0.4 mg/dL (0.15-1.2) 05/09/22 10:20 AST 18 U/L (0-32) 05/09/22 10:20 ALT 16 U/L (0-33) 05/09/22 10:20 Alkaline Phosphatase 62 U/L (35-105) 05/09/22 10:20 Total Protein 7.2 g/dL (6.6-8.7) 05/09/22 10:20 Albumin 4.1 g/dL (3.5-5.2) 05/09/22 10:20 Globulin 3.1 g/dL (1.3-4.6) 05/09/22 10:20 Urine Color Yellow (Yellow) 05/09/22 10:20 Urine Appearance Clear (CLEAR) 05/09/22 10:20 Urine pH 5 (5-7) 05/09/22 10:20 Ur Specific [place] 1.025 (1.005-1.030) 05/09/22 10:20 Urine Protein Neg (Negative) 05/09/22 10:20 Urine Glucose (UA) Norm (Normal) 05/09/22 10:20 Urine Ketones Negative (Negative) 05/09/22 10:20 Urine Blood Neg (Negative) 05/09/22 10:20 Urine Nitrate Negative (Negative) 05/09/22 10:20 Urine Bilirubin Neg (Negative) 05/09/22 10:20 Urine Urobilinogen Norm mg/dL (Negative) 05/09/22 10:20 Ur Leukocyte Esterase Negative (Negative) 05/09/22 10:20 Vitals Last Vital Signs Temp 98.0 F 05/14/22 04:17 Pulse 69 05/14/22 08:00 Resp 18 05/14/22 12:11 BP 155/67 05/14/22 08:00 Pulse Ox 98 05/14/22 08:00 O2 Del Method 05/14/22 04:17 Discharge Plan Discharge Patient Disposition: Home Health Service Condition: Stable Prescriptions: New celecoxib 200 mg Capsule 200 mg PO 1XD 30 Days Qty: 30 0RF acetaminophen 500 mg Tablet 1,000 mg PO Q8H 15 Days Qty: 90 0RF aspirin 325 mg Tablet,Delayed Release (Dr/Ec) 325 mg PO DAILY 30 Days Qty: 30 0RF oxycodone 5 mg Tablet 5 mg PO Q4H PRN (Reason: Moderate Pain) 7 Days Qty: 30 0RF Continued aspirin 81 mg tablet,delayed release (DR/EC) 81 mg PO DAILY cholecalciferol (vitamin D3) 2,000 unit tablet 2,000 unit PO ONCE ascorbic acid (vitamin C) 1,000 mg tablet 1 gm PO DAILY bassam [id number] 250-40-125 mg-mg-unit tablet 1 tab PO DAILY vitamin B complex [B Complex-Vitamin B12] Tablet 1 tab PO DAILY vitamin E (dl, acetate) 100 unit capsule 100 unit PO ONCE bismuth subsalicylate [Pepto-Bismol] 262 mg tablet,chewable 3 tab PO TID fluoxetine 40 mg Capsule 40 mg PO DAILY trazodone 50 mg Tablet 50 mg PO BEDTIME meloxicam 15 mg Tablet 15 mg PO DAILY Discharge Orders: Discharge Order (Routine); Ordered 05/14/22 Ordered By: Seda Gibson Other Ambulatory Orders: DME: Walker (Order) Location: None Selected Ordered By: Seda Gibson Referrals: [facility] [Outside] Seda Gibson MD [Physician] - 05/27/22 8:45 am Discharge Diet: Advance as tolerated and Usual diet Discharge Activity: Increase activity as tolerated, Limit activity as instructed, Use walker/crutches as instructed and As per PT/OT instructions Patient Instructions: Oxycodone/Acetaminophen (By mouth), Aspirin (By mouth), Celecoxib (By mouth), Knee Replacement (GEN), Opioid Safety Activity Restrictions/Additional Instructions: Ice to left knee. Weightbearing as tolerated. Gait training, strengthening, and range of motion per physical therapy. Elevate left lower extremity. 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
== END 2022-05-14 14:45 | disposition home health service (06) ==
LOC: MEDSURG 14:34
PROVIDERS: Admitting Provider Specialist; Visit Provider Specialist
PROC: 8E0Y0CZ Robotic Assisted Procedure of Lower Extremity, Open Approach (ICD-10-PCS; CPT 27447; principal; 2022-05-13 10:15)
DX: M17.12 Unilateral primary osteoarthritis, left knee (principal); M79.7 Fibromyalgia; Z79.82 Long term (current) use of aspirin
CPT/HCPCS: 27447; 36415; 51702; 73560; 80048; 80053; 81003; 85025; 93005; 97110; 97116; 97161; 97165; C1776; C9290; G0378; J0131; J0690; J1100; J2370; J2704; J2795; J3370; J3490; J7030

== ENCOUNTER → 2022-05-27 09:36 | Outpatient (BNVA) | payer MEDICARE, OTHER, SELFPAY | PROVIDERS: Visit Provider Nurse Practitioner Family | DX: Z96.652 Presence of left artificial knee joint (principal) | CPT/HCPCS: 73560; 73565; 99024 ==

== ENCOUNTER → 2022-06-24 09:43 | Outpatient (BNVA) | payer MEDICARE, OTHER, SELFPAY | PROVIDERS: Visit Provider Nurse Practitioner Family | DX: Z96.652 Presence of left artificial knee joint (principal); M76.32 Iliotibial band syndrome, left leg | CPT/HCPCS: 73560; 73565; 99024; 99214 ==

== ENCOUNTER 2022-07-09 13:22 | Outpatient (RCR) | payer MEDICARE, OTHER, SELFPAY | END 2022-07-29 23:59 | disposition home or self-care (01) | LOC: SPT 13:22 | PROVIDERS: PCP Internal Medicine; Visit Provider Nurse Practitioner Family | DX: Z47.1 Aftercare following joint replacement surgery (principal); Z96.652 Presence of left artificial knee joint | CPT/HCPCS: 97110; 97161 ==

== ENCOUNTER 2022-07-30 06:00 | Outpatient (RCR) | payer MEDICARE, OTHER, SELFPAY | END 2022-08-08 23:59 | disposition home or self-care (01) | LOC: SPT 06:00 | PROVIDERS: PCP Internal Medicine; Visit Provider Nurse Practitioner Family | DX: Z96.652 Presence of left artificial knee joint (principal) | CPT/HCPCS: 97110 ==

== ENCOUNTER → 2022-08-25 10:15 | Outpatient (BNVA) | payer MEDICARE, OTHER, SELFPAY | PROVIDERS: PCP Internal Medicine; Visit Provider Specialist | DX: Z96.652 Presence of left artificial knee joint (principal) | CPT/HCPCS: 73560; 73565; 99213 ==